=== PATIENT | female | born 1970 | race Caucasian/White ===

== ENCOUNTER 2023-05-09 11:16 | Emergency (ER) | payer OTHER ==
[2023-05-09] MEDS ORDERED: Ondansetron PF 4 MG/2 ML Vial ONE (11:37)
[2023-05-09] MEDS ORDERED: Pantoprazole 40 MG VIAL ONE (11:37)
[2023-05-09] MEDS ORDERED: Thiamine HCl 200 MG/2 ML VIAL ONE (11:37)
[2023-05-09] MEDS ORDERED: Folic Acid 5 MG/ML MDV ONE (11:37)
[2023-05-09] MEDS ORDERED: Morphine 4 MG/ML VIAL ONE (11:37)
[2023-05-09 11:49] LABS: #Basophils 0.2 thou/uL (0.0-0.2); #Monocytes 0.9 thou/uL (0.11-0.59); #Neutrophils 3.8 thou/uL (1.40-6.50); %Eosinophils 0.2 % (0.0-10.0); %Lymphocytes 40.8 % (21.0-51.0); %Monocytes 10.8 % (0.0-10.0); %Neutrophils 46.3 % (42.0-75.0); Hematocrit 45.7 % (36.0-47.0); Hemoglobin 15.7 g/dL (12.0-16.0); INR-International Normal Ratio 0.9; MDiff Complete? YES; Manual Diff?? NO; Mean Corpuscular HGB CONC 34.4 g/dL (32.0-36.0); Mean Corpuscular Hemoglobin 34.5 pg (27.0-31.0); Mean Platelet Volume 6.6 fL (7.4-10.4); Platelet Count 241 10x3/uL (130-400); Prothrombin Time 12.1 sec (12.0-14.7); Red Blood Cell (RBC) Count 4.55 mill/uL (4.20-5.40); White Blood Cell (WBC) Count 8.2 10x3/uL (4.8-10.8)
[2023-05-09 11:50] LABS: PTT 25.6 sec (22.9-36.1)
[2023-05-09 12:00] LABS: Troponin I Less than 0.010 ng/mL (< 0.028)
[2023-05-09 12:07] LABS: ALT (SGPT) 156 U/L (8-55); AST (SGOT) 188 U/L (5-34); Albumin 4.5 g/dL (3.5-5.0); Alcohol 245.8 mg/dL (Less than 10); Alkaline Phosphatase 120 U/L (40-110); Anion Gap 23 mmol/L (10-20); BUN (Urea Nitrogen) 12 mg/dL (9.8-20.1); Bilirubin, Total 0.6 mg/dL (0.2-1.2); Calc. Creatinine Clearance 0 mL/min (70-130); Calcium 9.1 mg/dL (7.8-10.44); Carbon Dioxide 21 mmol/L (22-29); Chloride 92 mmol/L (98-107); Estimated GFR 86; Globulin 2.8 g/dL (2.4-3.5); Glucose 334 mg/dL (70-105); Lipase 23 U/L (8-78); Protein, Total 7.3 g/dL (6.0-8.3); Sodium 132 mmol/L (136-145)
[2023-05-09 13:13] LABS: Bicarbonate (HCO3v) 23.8 mmol/L (22.0-28.0); CO2 Tension (PvCO2) 39.3 mmHg (42.0-51.0); Calcium, Ionized 1.05 mmol/L (1.15-1.33); Chloride 98 mmol/L (98-107); Hemoglobin - Calc 15.8 g/dL (12.0-16.0); Potassium 3.9 mmol/L (3.5-5.1); Sodium 135 mmol/L (138-145); vO2 Saturation-calc 98.7 % (60.0-85.0)
[2023-05-09 13:52] LABS: Bilirubin Negative (Negative); Blood, Urine Trace (Negative); Clarity Clear (Clear); Glucose, Urine (Dipstick) 250 mg/dL (Negative); Ketone, Urine 15 mg/dL (Negative); Leukocyte Small (Negative); Nitrite Negative (Negative); Protein, Urine (Dipstick) Negative (Neg-Trace); Urobilinogen 0.2 mg/dL (Less than 2); pH, Urine 6.5 (5.0-9.0)
[2023-05-09 13:59] LABS: Bacteria/HPF 1+ HPF (None Seen); CAUTI Indications for Culture Dysuria,urgency,freq; RBC/HPF 0-3 HPF (0-3); Squamous Epithelial 0-3 HPF (0-3); WBC/HPF 0-3 HPF (0-3)
[2023-05-09 14:00] LABS: Urine Culture Reflex No No
[2023-05-09 14:35] LABS: Lactic Acid 3.3 mmol/L (0.5-2.2)
[2023-05-09 14:38] LABS: Anion Gap 19 mmol/L (10-20); BUN (Urea Nitrogen) 10 mg/dL (9.8-20.1); Calc. Creatinine Clearance 0 mL/min (70-130); Calcium 8.6 mg/dL (7.8-10.44); Carbon Dioxide 20 mmol/L (22-29); Chloride 101 mmol/L (98-107); Estimated GFR 104; Glucose 172 mg/dL (70-105); Potassium 3.9 mmol/L (3.5-5.1); Sodium 136 mmol/L (136-145)
[2023-05-09] MEDS ORDERED: Mag-Al Plus 1200/1200/120 MG (30 mL) UDCUP ONE (15:04)
[2023-05-09] MEDS ORDERED: Lidocaine 2% Viscous 100 ML BOTTLE ONE (15:44)
== END 2023-05-09 16:02 | disposition home or self-care (01) ==
LOC: BURERS 11:16
DX: K29.20 Alcoholic gastritis without bleeding (principal); F10.129 Alcohol abuse with intoxication, unspecified; A09 Infectious gastroenteritis and colitis, unspecified; E86.0 Dehydration; E11.10 Type 2 diabetes mellitus with ketoacidosis without coma; I10 Essential (primary) hypertension; Y90.8 Blood alcohol level of 240 mg/100 ml or more
CPT/HCPCS: 36415; 71045; 74177; 80053; 80307; 81001; 82330; 82803; 83605; 83690; 84484; 85025; 85610; 85730; 93005; 94760; 96361; 96374; 96375; C9113; J2270; J2405; J3411